=== PATIENT | female | born 1940 | race African-American/Black ===

== ENCOUNTER 2018-11-21 12:07 | Inpatient (IN) | payer MEDICARE ==
[~2018-11-21] VITALS: Ht 167.6 cm; Wt 66.2 kg
[2018-11-21] MEDS ORDERED: ONDANSETRON HCL 4MG/2ML INJ IV STA (15:04)
[2018-11-21] MEDS ORDERED: SODIUM CHLORIDE 0.9% 1,000 ML IV ONE (15:04)
[2018-11-21 15:43] LABS: BASOPHILS % 0.6 % (0.0-2.0); EOSINOPHILS % 0.1 % (0.0-5.0); HEMATOCRIT. 38.6 % (36.0-48.0); HEMOGLOBIN. 12.6 g/dL (12.0-16.0); LYMPHOCYTES % 22.7 % (20.0-50.0); MEAN CORPUSCULAR HEMOGLOBIN 32.3 pg (28.0-32.0); MEAN CORPUSCULAR VOLUME 99.2 fL (81.0-99.0); MEAN PLATELET VOLUME 7.9 fl (7.4-10.4); MONOCYTES % 6.6 % (2.0-8.0); PLATELET 271 x1000/uL (130-400); RED BLOOD CELL COUNT 3.89 mill/uL (4.2-5.4); RED CELL DISTRIBUTION WIDTH 15.5 % (11.6-14.6)
[2018-11-21 15:48] LABS: CHLORIDE 103 mEq/L (98-107)
[2018-11-21 15:52] LABS: ETHANOL BLOOD < 10 mg/dL
[2018-11-21 15:56] LABS: CREATINE KINASE 81 IU/L (26-192)
[2018-11-21] MEDS ORDERED: ENOXAPARIN 60MG/0.6ML SYR SUBCUT ONE (16:15)
[2018-11-21] MEDS ORDERED: ASPIRIN 81MG TABLET PO ONE (16:15)
[2018-11-21 16:16] LABS: CLARITY URINE CLEAR (CLEAR); COLOR URINE DARK YELLOW (YELLOW); KETONES URINE NEGATIVE (NEGATIVE); LEUKOCYTE ESTERASE URINE TRACE (NEGATIVE); NITRITE URINE NEGATIVE (NEGATIVE); OCCULT BLOOD URINE NEGATIVE (NEGATIVE); PH URINE 5.5 (4.5-8.0); PROTEIN URINE TRACE (NEGATIVE); SPECIFIC GRAVITY URINE 1.018 (1.005-1.030); UROBILINOGEN URINE 0.2 E.U./dL (0.2-1.0)
[2018-11-21 16:29] LABS: *AMPHETAMINES SCREEN URINE NEGATIVE (NEGATIVE); *BARBITURATES SCREEN URINE NEGATIVE (NEGATIVE); *BENZODIAZEPINES SCREEN URINE NEGATIVE (NEGATIVE); *COCAINE SCREEN URINE NEGATIVE (NEGATIVE)
[2018-11-21 16:30] LABS: CANNABINOID URINE SCREEN NEGATIVE (NEGATIVE); METHADONE URINE SCREEN NEGATIVE (NEGATIVE); OPIATES URINE SCREEN NEGATIVE (NEGATIVE); PHENCYCLIDINE URINE SCREEN NEGATIVE (NEGATIVE)
[2018-11-21] MEDS ORDERED: LORAZEPAM 0.5MG TABLET PO PRN (20:30)
[2018-11-21] MEDS ORDERED: DIPHENHYDRAMINE 50MG/ML VIAL IV PRN (20:30)
[2018-11-21] MEDS ORDERED: CLONIDINE 0.1MG TABLET PO PRN (20:30)
[2018-11-21] MEDS ORDERED: ONDANSETRON HCL 4MG/2ML INJ IV PRN (20:30)
[2018-11-21] MEDS ORDERED: ACETAMINOPHEN 325MG TABLET PO PRN (20:30)
[2018-11-21] MEDS ORDERED: MAGNESIUM/ALUMINUM HYDROXIDE/SIMETHICONE 30ML UDC PO PRN (20:30)
[2018-11-21 22:12] VITALS: BP 117/75
[2018-11-21] MEDS ORDERED: TEMAZEPAM 15MG CAPSULE PO PRN (22:21)
[2018-11-21] MEDS ORDERED: DEXT 5%/0.45% NACL 1000ML 1,000 ML IV SCH (22:30)
[2018-11-21] MEDS ORDERED: MECLIZINE 25MG TABLET PO PRN (22:45)
[2018-11-21] MEDS: AMLODIPINE 2.5MG TABLET PO SCH (23:03)
[2018-11-22] VITALS (12 sets, daily range): BP systolic 117–140; BP diastolic 59–84
[2018-11-22] MEDS: HYDROXYCHLOROQUINE SULFATE 200MG TABLET PO SCH (01:00)
[2018-11-22] MEDS ORDERED: DORZ10DR12 LEFTEYE (02:40)
[2018-11-22] MEDS ORDERED: ASCO-339 PO (02:40)
[2018-11-22] MEDS ORDERED: HYDR200T80 PO (02:40)
[2018-11-22] MEDS ORDERED: GABA-529 PO (02:40)
[2018-11-22] MEDS ORDERED: FOLI0.4T2 PO (02:40)
[2018-11-22] MEDS ORDERED: LATA2.5D2 EACHEYE (02:40)
[2018-11-22] MEDS ORDERED: VITA-340 PO (02:40)
[2018-11-22] MEDS ORDERED: SULF500T8 PO ×2 (02:40→09:17)
[2018-11-22] MEDS ORDERED: CAPS1ADH9 TP (02:40)
[2018-11-22] MEDS ORDERED: GABA-290 PO (02:40)
[2018-11-22] MEDS ORDERED: VITA1CAP PO (02:40)
[2018-11-22] MEDS ORDERED: CHOL100022 PO (02:40)
[2018-11-22] MEDS ORDERED: THIA100T13 PO (02:40)
[2018-11-22] MEDS ORDERED: FERR-71 PO (02:40)
[2018-11-22] MEDS ORDERED: ROSU40TA21 PO (02:40)
[2018-11-22] MEDS ORDERED: DORZOLAM/TIMOLOL 2.23/0.68% OPHTH DROPS 10ML LEFTEYE SCH (09:00)
[2018-11-22] MEDS: AMLODIPINE 2.5MG TABLET PO SCH ×2 (09:00→22:41)
[2018-11-22] MEDS: ASCORBIC ACID 500 MG TABLET PO SCH (09:01)
[2018-11-22] MEDS: CLOPIDOGREL 75MG TABLET PO SCH ×2 (09:01→22:39)
[2018-11-22] MEDS: MULTIVITAMINS,THER W-MINERALS TABLET PO SCH (09:01)
[2018-11-22] MEDS: THIAMINE HCL 100MG TABLET PO SCH (09:01)
[2018-11-22] MEDS: FOLIC ACID 1MG TABLET PO SCH (09:01)
[2018-11-22] MEDS: DORZOLAMIDE 2% OPHTH 10 ML BOTTLE LEFTEYE SCH ×2 (09:05→22:44)
[2018-11-22] MEDS: TIMOLOL MALEATE 0.5% OPHTH DROPS 5ML LEFTEYE SCH ×2 (09:05→22:43)
[2018-11-22] MEDS: VITAMIN E ACETATE 400 UNITS CAPSULE PO SCH (10:38)
[2018-11-22] MEDS: ATORVASTATIN CALCIUM 40MG TABLET PO SCH (22:39)
[2018-11-22] MEDS: LATANOPROST 0.005% OPHTH DROPS 2.5ML BOTHEYE SCH (22:43)
[2018-11-23] VITALS (11 sets, daily range): BP systolic 117–149; BP diastolic 59–86
[2018-11-23] MEDS: FOLIC ACID 1MG TABLET PO SCH (08:14)
[2018-11-23] MEDS: ASCORBIC ACID 500 MG TABLET PO SCH (08:14)
[2018-11-23] MEDS: VITAMIN E ACETATE 400 UNITS CAPSULE PO SCH (08:14)
[2018-11-23] MEDS: MULTIVITAMINS,THER W-MINERALS TABLET PO SCH (08:14)
[2018-11-23] MEDS: THIAMINE HCL 100MG TABLET PO SCH (08:15)
[2018-11-23] MEDS: AMLODIPINE 2.5MG TABLET PO SCH ×2 (08:15→21:32)
[2018-11-23] MEDS: DORZOLAMIDE 2% OPHTH 10 ML BOTTLE LEFTEYE SCH ×2 (08:15→21:39)
[2018-11-23] MEDS: TIMOLOL MALEATE 0.5% OPHTH DROPS 5ML LEFTEYE SCH ×2 (08:16→21:34)
[2018-11-23 12:49] LABS: HEMATOCRIT 36.4 % (36.0-48.0); MEAN CORPUSCULAR HEMOGLOBIN 32.6 pg (28.0-32.0); PLATELET 281 x1000/uL (130-400); RED BLOOD CELL COUNT 3.67 mill/uL (4.2-5.4); RED CELL DISTRIBUTION WIDTH 15.8 % (11.6-14.6)
[2018-11-23 12:58] LABS: CHLORIDE 103 mEq/L (98-107)
[2018-11-23] MEDS: ATORVASTATIN CALCIUM 40MG TABLET PO SCH (21:32)
[2018-11-23] MEDS: HYDROXYCHLOROQUINE SULFATE 200MG TABLET PO SCH (21:32)
[2018-11-23] MEDS: SULFASALAZINE 500MG TABLET PO SCH (21:33)
[2018-11-23] MEDS: LATANOPROST 0.005% OPHTH DROPS 2.5ML BOTHEYE SCH (21:35)
[2018-11-24] VITALS (12 sets, daily range): BP systolic 93–137; BP diastolic 50–79
[2018-11-24] MEDS: AMLODIPINE 2.5MG TABLET PO SCH ×2 (08:20→20:51)
[2018-11-24] MEDS: MULTIVITAMINS,THER W-MINERALS TABLET PO SCH (08:21)
[2018-11-24] MEDS: SULFASALAZINE 500MG TABLET PO SCH ×2 (08:21→20:50)
[2018-11-24] MEDS: FOLIC ACID 1MG TABLET PO SCH (08:21)
[2018-11-24] MEDS: VITAMIN E ACETATE 400 UNITS CAPSULE PO SCH (08:21)
[2018-11-24] MEDS: THIAMINE HCL 100MG TABLET PO SCH (08:21)
[2018-11-24] MEDS: ASCORBIC ACID 500 MG TABLET PO SCH (08:21)
[2018-11-24] MEDS: TIMOLOL MALEATE 0.5% OPHTH DROPS 5ML LEFTEYE SCH ×2 (08:22→20:54)
[2018-11-24] MEDS: CLOPIDOGREL 75MG TABLET PO SCH (08:22)
[2018-11-24] MEDS: DORZOLAMIDE 2% OPHTH 10 ML BOTTLE LEFTEYE SCH ×2 (08:23→20:53)
[2018-11-24] MEDS ORDERED: MAGNESIUM HYDROXIDE 400MG/5ML 30ML UDC PO PRN (18:00)
[2018-11-24] MEDS: DOCUSATE SODIUM 100MG CAPSULE PO SCH (18:20)
[2018-11-24] MEDS: ATORVASTATIN CALCIUM 40MG TABLET PO SCH (20:50)
[2018-11-24] MEDS: HYDROXYCHLOROQUINE SULFATE 200MG TABLET PO SCH (20:52)
[2018-11-24] MEDS: LATANOPROST 0.005% OPHTH DROPS 2.5ML BOTHEYE SCH (20:54)
[2018-11-25] VITALS (11 sets, daily range): BP systolic 105–129; BP diastolic 54–93
[2018-11-25 06:59] LABS: PROTHROMBIN TIME 10.2 sec (9.6-11.0)
[2018-11-25 07:10] LABS: HEMATOCRIT 33.4 % (36.0-48.0); HEMOGLOBIN 10.9 g/dL (12.0-16.0); MEAN CORPUSCULAR VOLUME 98.5 fL (81.0-99.0); PLATELET 237 x1000/uL (130-400); RED BLOOD CELL COUNT 3.39 mill/uL (4.2-5.4); RED CELL DISTRIBUTION WIDTH 15.5 % (11.6-14.6)
[2018-11-25 07:45] LABS: CHLORIDE 105 mEq/L (98-107)
[2018-11-25] MEDS: TIMOLOL MALEATE 0.5% OPHTH DROPS 5ML LEFTEYE SCH (08:39)
[2018-11-25] MEDS: DORZOLAMIDE 2% OPHTH 10 ML BOTTLE LEFTEYE SCH (08:39)
[2018-11-25] MEDS: AMLODIPINE 2.5MG TABLET PO SCH (08:45)
[2018-11-25] MEDS: SULFASALAZINE 500MG TABLET PO SCH (08:45)
[2018-11-25] MEDS: MULTIVITAMINS,THER W-MINERALS TABLET PO SCH (08:45)
[2018-11-25] MEDS: THIAMINE HCL 100MG TABLET PO SCH (08:45)
[2018-11-25] MEDS: ASCORBIC ACID 500 MG TABLET PO SCH (08:45)
[2018-11-25] MEDS: DOCUSATE SODIUM 100MG CAPSULE PO SCH (08:45)
[2018-11-25] MEDS: FOLIC ACID 1MG TABLET PO SCH (08:45)
[2018-11-25] MEDS: CLOPIDOGREL 75MG TABLET PO SCH (08:45)
[2018-11-25] MEDS: VITAMIN E ACETATE 400 UNITS CAPSULE PO SCH (08:45)
[2018-11-25] MEDS ORDERED: IODIXANOL 320MG/ML 100 ML BOTTLE IV ONE (09:20)
[2018-11-25] MEDS ORDERED: LIDOCAINE HCL 1% 20ML VIAL (Pyxis) INJ ONE (09:20)
[2018-11-25] MEDS ORDERED: FENTANYL CITRATE/PF 50MCG/ML 2ML VIAL ONE (09:41)
[2018-11-25] MEDS ORDERED: MIDAZOLAM HCL 2 MG/2 ML VIAL ONE (09:41)
[2018-11-25] MEDS ORDERED: ATROPINE SULFATE 1MG/10ML SYR IV PRN (10:15)
[2018-11-25] MEDS ORDERED: FUROSEMIDE 20MG/2ML VIAL IV SCH (12:45)
[2018-11-25] MEDS ORDERED: LOSARTAN POTASSIUM 50 MG TABLET PO SCH (12:45)
[2018-11-25] MEDS ORDERED: LOSARTAN POTASSIUM 25 MG TABLET PO SCH (12:51)
[2018-11-25] MEDS ORDERED: ATROPINE SULFATE 1MG/10ML SYR ONE ×2 (16:01)
[2018-11-25] MEDS ORDERED: DEXTROSE 50% WATER 50ML SYRINGE IV ONE (16:01)
[2018-11-25] MEDS ORDERED: SODIUM CHLORIDE 0.9% 10ML VIAL ONE (16:01)
[2018-11-25] MEDS ORDERED: SODIUM BICARBONATE 7.5% 0.9 MEQ/ML 50ML SYR IV ONE (16:01)
[2018-11-25] MEDS ORDERED: VECURONIUM BROMIDE 10 MG/VIAL IV ONE (16:01)
[2018-11-25] MEDS ORDERED: ETOMIDATE 2MG/ML 10ML VIAL IV ONE (16:01)
[2018-11-25] MEDS ORDERED: EPINEPHRINE 0.1MG/ML (1:10,000) 10ML SYR ONE (16:01)
[2018-11-25] MEDS ORDERED: EPINEPHRINE 4 MG in SODIUM CHLORIDE 0.9% 249 ML IV PRN (16:45)
[2018-11-25] MEDS ORDERED: EPINEPHRINE 1 MG in SODIUM CHLORIDE 0.9% 249 ML IV PRN (16:45)
[2018-11-25] MEDS ORDERED: EPINEPHRINE 4 MG in SODIUM CHLORIDE 0.9% 246 ML IV PRN (16:45)
[2018-11-25] MEDS ORDERED: CARVEDILOL 3.125 MG TABLET PO SCH (21:00)
== END 2018-11-25 16:40 | disposition expired ==
LOC: ER 12:07 → 3WST 16:08 → EDBEDREQ 16:11 → ENRESERV 20:33
PROVIDERS: ADMIT Internal Medicine; ATTEND Internal Medicine
PROC: 4A023N7 Measurement of Cardiac Sampling and Pressure, Left Heart, Percutaneous Approach (ICD-10-PCS; principal; 2018-11-25)
PROC: B2111ZZ Fluoroscopy of Multiple Coronary Arteries using Low Osmolar Contrast (ICD-10-PCS; 2018-11-25)
PROC: B2151ZZ Fluoroscopy of Left Heart using Low Osmolar Contrast (ICD-10-PCS; 2018-11-25)
PROC: 0BH17EZ Insertion of Endotracheal Airway into Trachea, Via Natural or Artificial Opening (ICD-10-PCS; 2018-11-25)
PROC: 5A12012 Performance of Cardiac Output, Single, Manual (ICD-10-PCS; 2018-11-25)
DX: I21.4 Non-ST elevation (NSTEMI) myocardial infarction (principal); J96.00 Acute respiratory failure, unspecified whether with hypoxia or hypercapnia; I50.20 Unspecified systolic (congestive) heart failure; I42.9 Cardiomyopathy, unspecified; I51.81 Takotsubo syndrome; I46.9 Cardiac arrest, cause unspecified; G62.9 Polyneuropathy, unspecified; E78.00 Pure hypercholesterolemia, unspecified; I11.0 Hypertensive heart disease with heart failure; E78.5 Hyperlipidemia, unspecified; I25.10 Atherosclerotic heart disease of native coronary artery without angina pectoris; M19.90 Unspecified osteoarthritis, unspecified site; M06.9 Rheumatoid arthritis, unspecified; R42 Dizziness and giddiness; Z95.0 Presence of cardiac pacemaker; Z88.6 Allergy status to analgesic agent; Z98.51 Tubal ligation status; Z79.899 Other long term (current) drug therapy
CPT/HCPCS: 36415; 71045; 74176; 80048; 80061; 80305; 80320; 82550; 82553; 82962; 83605; 83880; 84145; 84443; 84484; 85027; 93005; 93306; 93458; 93970; 96372; 96374; 99285; C1760; C1769; C1887; C1893; J0461; J1644; J1650; J1940; J2250; J2405; J3010; J3490; J7030; J7050; Q9967; G0480